=== PATIENT | female | born 1980 | race Caucasian/White ===

== ENCOUNTER 2017-01-01 08:55 | Emergency (ER) | payer MEDICAID ==
[~2017-01-01] VITALS: Ht 162.6 cm; Wt 135.8 kg
[2017-01-01 09:39] VITALS: BP 159/89
== END 2017-01-01 09:39 | disposition home or self-care (01) ==
LOC: ED 08:55
DX: S61.210A Laceration without foreign body of right index finger without damage to nail, initial encounter (principal); I10 Essential (primary) hypertension; Z98.51 Tubal ligation status; W26.8XXA Contact with other sharp object(s), not elsewhere classified, initial encounter; Y93.89 Activity, other specified; Y92.89 Other specified places as the place of occurrence of the external cause; Y99.8 Other external cause status

== ENCOUNTER 2017-04-12 11:16 | Emergency (ER) | payer MEDICAID ==
[~2017-04-12] VITALS: Ht 162.6 cm; Wt 138.3 kg
[2017-04-12 11:39] VITALS: Ht 162.6 cm; Wt 138.3 kg
[2017-04-12 13:56] VITALS: BP 140/95
== END 2017-04-12 13:56 | disposition home or self-care (01) ==
LOC: ED 11:16
DX: M62.830 Muscle spasm of back (principal); I10 Essential (primary) hypertension; Z98.51 Tubal ligation status; Z87.828 Personal history of other (healed) physical injury and trauma
CPT/HCPCS: J2001

== ENCOUNTER 2017-05-22 20:25 | Inpatient (IN) | payer MEDICAID ==
[~2017-05-22] VITALS: Ht 162.6 cm; Wt 136.1 kg
[2017-05-22 20:31] VITALS: Ht 162.6 cm; Wt 136.1 kg
[2017-05-22 21:32] LABS: BASOPHIL % 1.4 % (0-2); PLATELET COUNT 300 x10^3mcL (130-400)
[2017-05-22 21:41] LABS: RED CELL DISTRIBUTION WIDTH 16.3 % (11.5-14.5)
[2017-05-22 21:44] LABS: CALCIUM 8.8 mg/dL (8.5-10.1); CARBON DIOXIDE 30.7 mmol/L (21-32); CHLORIDE SERUM 103 mmol/L (98-107); GFR1 > 60 mL/min; GLUCOSE SERUM 102 mg/dL (74-106); POTASSIUM SERUM 3.3 mmol/L (3.5-5.1); SODIUM SERUM 142 mmol/L (136-145)
[2017-05-22 21:48] LABS: ALBUMIN 3.5 g/dL (3.4-5.0); ALKALINE PHOSPHATASE 80 U/L (46-116); ALT/SGPT 23 U/L (14-59); AMYLASE 35 U/L (25-115); AST/SGOT 15 U/L (15-37); BILIRUBIN TOTAL 0.3 mg/dL (0.20-1.00); LIPASE 90 IU/L (73-393); TOTAL PROTEIN, SERUM 7.6 g/dL (6.4-8.2)
[2017-05-22] MEDS ORDERED: LASIX20 MG (22:58)
[2017-05-22] MEDS ORDERED: NOR5 (22:58)
[2017-05-22 23:41] LABS: CHOLESTEROL/HDL RATIO 3.5; MAGNESIUM 1.9 mg/dL (1.8-2.4); PHOSPHOROUS 2.9 mg/dL (2.5-4.9)
[2017-05-22 23:45] LABS: T3 TOTAL 1.64 ng/mL
[2017-05-22 23:49] LABS: FREE T4 1.06 ng/dL (0.76-1.46); FREE THYROXINE INDEX 2.7 ug/dL (1.4-4.5); T4(THYROXINE) 7.9 ug/dL (4.7-13.3)
[2017-05-22 23:58] VITALS: BP 187/107
[2017-05-23] VITALS (7 sets, daily range): BP systolic 106–184; BP diastolic 59–107
[2017-05-23 07:04] LABS: BASOPHIL % 0.7 % (0-2); PLATELET COUNT 270 x10^3mcL (130-400)
[2017-05-23 07:13] LABS: CALCIUM 8.7 mg/dL (8.5-10.1); CHLORIDE SERUM 106 mmol/L (98-107); CREATININE SERUM 0.9 mg/dL (0.6-1.0); GFR1 > 60 mL/min; GLUCOSE SERUM 105 mg/dL (74-106); SODIUM SERUM 143 mmol/L (136-145)
[2017-05-23 07:28] LABS: RED CELL DISTRIBUTION WIDTH 16.5 % (11.5-14.5)
[2017-05-23 11:21] LABS: microscopic required? NO
[2017-05-23 11:29] LABS: UA SPECIFIC GRAVITY 1.025 (1.005-1.035); urine erythrocyte NEGATIVE (NEGATIVE)
[2017-05-23 11:50] LABS: AMPHETAMINE QUAL UR NONE DETECTED (NEG <=1000)
[2017-05-24] VITALS (7 sets, daily range): BP systolic 109–145; BP diastolic 60–87
[2017-05-24 06:48] LABS: BASOPHIL % 0.9 % (0-2); PLATELET COUNT 281 x10^3mcL (130-400)
[2017-05-24 06:59] LABS: RED CELL DISTRIBUTION WIDTH 16.1 % (11.5-14.5)
[2017-05-24 07:09] LABS: CALCIUM 8.2 mg/dL (8.5-10.1); CHLORIDE SERUM 107 mmol/L (98-107); CREATININE SERUM 0.9 mg/dL (0.6-1.0); GFR1 > 60 mL/min; GLUCOSE SERUM 104 mg/dL (74-106); MAGNESIUM 2.1 mg/dL (1.8-2.4); PHOSPHOROUS 2.7 mg/dL (2.5-4.9); POTASSIUM SERUM 4.2 mmol/L (3.5-5.1); SODIUM SERUM 142 mmol/L (136-145)
[2017-05-24 15:14] LABS: IRON 49 ug/dL (50-170); TOTAL IRON BINDING CAPACITY 300 ug/dL (250-450)
[2017-05-24 15:17] LABS: RED BLOOD CELLS 4.16 M/mm3 (4.10-5.10)
[2017-05-25 06:03] VITALS: BP 121/52
[2017-05-25 07:05] LABS: CALCIUM 8.1 mg/dL (8.5-10.1); CARBON DIOXIDE 29.5 mmol/L (21-32); CHLORIDE SERUM 107 mmol/L (98-107); CREATININE SERUM 0.7 mg/dL (0.6-1.0); GFR1 > 60 mL/min; GLUCOSE SERUM 95 mg/dL (74-106); PHOSPHOROUS 2.7 mg/dL (2.5-4.9); POTASSIUM SERUM 3.7 mmol/L (3.5-5.1); SODIUM SERUM 143 mmol/L (136-145)
[2017-05-25 07:10] LABS: BASOPHIL % 1.3 % (0-2); PLATELET COUNT 253 x10^3mcL (130-400)
[2017-05-25 07:34] LABS: RED CELL DISTRIBUTION WIDTH 16.3 % (11.5-14.5)
[2017-05-25 09:43] VITALS: BP 144/83
[2017-05-25] MEDS ORDERED: IBUPROFEN400 MG PO (13:07)
[2017-05-25 14:01] VITALS: BP 131/73
[2017-05-25 14:37] VITALS: BP 131/73
== END 2017-05-25 15:51 | disposition home or self-care (01) | DRG 263 ==
LOC: ED 20:25 → DU 22:48
PROVIDERS: Emergency Medicine; Family Medicine; Family Medicine Sports Medicine; Surgery
PROC: 0FT44ZZ Resection of Gallbladder, Percutaneous Endoscopic Approach (ICD-10-PCS; principal; 2017-05-23 09:30)
DX: K80.62 Calculus of gallbladder and bile duct with acute cholecystitis without obstruction (principal); K76.0 Fatty (change of) liver, not elsewhere classified; Z68.43 Body mass index [BMI] 50.0-59.9, adult; F32.9 Major depressive disorder, single episode, unspecified; Z98.51 Tubal ligation status; E66.9 Obesity, unspecified; Z53.29 Procedure and treatment not carried out because of patient's decision for other reasons; D72.829 Elevated white blood cell count, unspecified; D64.9 Anemia, unspecified; I16.0 Hypertensive urgency; E87.6 Hypokalemia; Z87.891 Personal history of nicotine dependence; Z79.899 Other long term (current) drug therapy; Z83.3 Family history of diabetes mellitus; Z82.49 Family history of ischemic heart disease and other diseases of the circulatory system
CPT/HCPCS: 83880; 84439; 94150; J0295; J0330; J0690; J0696; J1170; J1644; J1885; J2250; J2270; J2405; J2704; J2710; J3010; J3490; J7030; J7120; Q0092

== ENCOUNTER 2018-10-04 21:54 | Emergency (ER) | payer MEDICAID ==
[~2018-10-04] VITALS: Ht 162.6 cm; Wt 132.9 kg
[~2018-10-04 21:54] MED LIST: IBUPROFEN400 MG PO; LASIX20 MG; NOR5
[2018-10-04 22:00] VITALS: Ht 162.6 cm; Wt 132.9 kg
[2018-10-04 23:50] LABS: PLATELET COUNT 277 x10^3mcL (130-400)
[2018-10-04 23:52] LABS: RED CELL DISTRIBUTION WIDTH 15.5 % (11.5-14.5)
[2018-10-04 23:56] LABS: C REACTIVE PROTEIN 3.5 mg/dL (<=0.9)
[2018-10-05 00:36] LABS: ERYTHROCYTE SED RATE 34 mm/hr (0-20)
[2018-10-05 00:55] VITALS: BP 133/70
== END 2018-10-05 00:55 | disposition home or self-care (01) ==
LOC: ED 21:54
PROVIDERS: Emergency Medicine
DX: M79.632 Pain in left forearm (principal); R20.0 Anesthesia of skin; M79.89 Other specified soft tissue disorders; I10 Essential (primary) hypertension; F32.9 Major depressive disorder, single episode, unspecified; Z98.51 Tubal ligation status; Z98.890 Other specified postprocedural states
CPT/HCPCS: 36415; J1885; J3010

== ENCOUNTER 2018-11-13 10:30 | Emergency (ER) | payer MEDICAID ==
[~2018-11-13] VITALS: Ht 162.6 cm; Wt 131.5 kg
[2018-11-13 10:39] VITALS: Ht 162.6 cm; Wt 131.5 kg
[2018-11-13 11:16] LABS: BASOPHIL % 0.9 % (0-2); PLATELET COUNT 301 x10^3mcL (130-400)
[2018-11-13 11:17] LABS: CALCIUM 9.1 mg/dL (8.5-10.1); CARBON DIOXIDE 22.7 mmol/L (21-32); CHLORIDE SERUM 106 mmol/L (98-107); CREATININE SERUM 0.9 mg/dL (0.6-1.0); GFR1 > 60 mL/min; GLUCOSE SERUM 114 mg/dL (74-106); SODIUM SERUM 141 mmol/L (136-145)
[2018-11-13 11:21] LABS: ALBUMIN 3.4 g/dL (3.4-5.0); ALKALINE PHOSPHATASE 73 U/L (46-116); ALT/SGPT 19 U/L (14-59); AST/SGOT 12 U/L (15-37); BILIRUBIN TOTAL 0.7 mg/dL (0.20-1.00); TOTAL PROTEIN, SERUM 7.4 g/dL (6.4-8.2)
[2018-11-13 11:28] LABS: RED CELL DISTRIBUTION WIDTH 15.9 % (11.5-14.5)
[2018-11-13 13:41] VITALS: BP 142/95
== END 2018-11-13 13:41 | disposition home or self-care (01) ==
LOC: ED 10:30
PROVIDERS: Emergency Medicine
DX: R55 Syncope and collapse (principal); F45.8 Other somatoform disorders; I10 Essential (primary) hypertension; F32.9 Major depressive disorder, single episode, unspecified; Z98.51 Tubal ligation status
CPT/HCPCS: 36415; J2060

== ENCOUNTER 2019-01-27 13:10 | Emergency (ER) | payer MEDICAID ==
[~2019-01-27] VITALS: Ht 165.1 cm; Wt 132.0 kg
[2019-01-27 13:23] VITALS: BP 159/93; Ht 165.1 cm; Wt 132.0 kg
== END 2019-01-27 15:40 | disposition home or self-care (01) ==
LOC: ED 13:10
DX: H61.23 Impacted cerumen, bilateral (principal); I10 Essential (primary) hypertension; F32.9 Major depressive disorder, single episode, unspecified

== ENCOUNTER 2019-06-22 15:01 | Emergency (ER) | payer MEDICAID ==
[~2019-06-22] VITALS: Ht 165.1 cm; Wt 142.9 kg
[2019-06-22 15:10] VITALS: Ht 165.1 cm; Wt 142.9 kg
[2019-06-22 15:59] VITALS: BP 164/95
== END 2019-06-22 15:59 | disposition home or self-care (01) ==
LOC: ED 15:01
DX: M79.622 Pain in left upper arm (principal); H92.01 Otalgia, right ear; R20.2 Paresthesia of skin; M54.2 Cervicalgia; I10 Essential (primary) hypertension; E66.01 Morbid (severe) obesity due to excess calories
CPT/HCPCS: J1885

== ENCOUNTER 2019-07-08 15:18 | Emergency (ER) | payer MEDICAID ==
[~2019-07-08] VITALS: Ht 165.1 cm; Wt 140.2 kg
[2019-07-08 15:47] VITALS: Ht 165.1 cm; Wt 140.2 kg
[2019-07-08 17:02] LABS: BASOPHIL % 0.3 % (0-2); PLATELET COUNT 305 x10^3mcL (130-400)
[2019-07-08 17:03] LABS: CALCIUM 8.9 mg/dL (8.5-10.1); CARBON DIOXIDE 31.2 mmol/L (21-32); CHLORIDE SERUM 109 mmol/L (98-107); CREATININE SERUM 0.8 mg/dL (0.6-1.0); GFR1 > 60 mL/min; GLUCOSE SERUM 101 mg/dL (74-106); POTASSIUM SERUM 3.8 mmol/L (3.5-5.1); SODIUM SERUM 145 mmol/L (136-145)
[2019-07-08 17:08] LABS: ALKALINE PHOSPHATASE 85 U/L (46-116); ALT/SGPT 17 U/L (14-59); AST/SGOT 10 U/L (15-37); BILIRUBIN TOTAL 0.28 mg/dL (0.20-1.00); TOTAL PROTEIN, SERUM 7.3 g/dL (6.4-8.2)
[2019-07-08 17:10] LABS: RED CELL DISTRIBUTION WIDTH 15.2 % (11.5-14.5)
[2019-07-08 17:12] LABS: ALBUMIN 3.2 g/dL (3.4-5.0)
[2019-07-08 18:29] VITALS: BP 180/97
== END 2019-07-08 18:29 | disposition home or self-care (01) ==
LOC: ED 15:18
PROVIDERS: Emergency Medicine
DX: M54.12 Radiculopathy, cervical region (principal); I10 Essential (primary) hypertension; E66.01 Morbid (severe) obesity due to excess calories; Z68.43 Body mass index [BMI] 50.0-59.9, adult; Z98.51 Tubal ligation status; Z90.49 Acquired absence of other specified parts of digestive tract
CPT/HCPCS: 36415; 83880; Q0092

== ENCOUNTER 2019-11-17 11:59 | Emergency (ER) | payer SELFPAY ==
[~2019-11-17] VITALS: Ht 162.6 cm; Wt 136.1 kg
[2019-11-17 12:01] VITALS: Ht 162.6 cm; Wt 136.1 kg
[2019-11-17 13:19] VITALS: BP 172/107
== END 2019-11-17 13:19 | disposition home or self-care (01) ==
LOC: ED 11:59
DX: R50.9 Fever, unspecified (principal); M54.2 Cervicalgia; R05 Cough; I10 Essential (primary) hypertension; Z90.49 Acquired absence of other specified parts of digestive tract; Z98.51 Tubal ligation status; Z20.828 Contact with and (suspected) exposure to other viral communicable diseases
CPT/HCPCS: U0003-CS